=== PATIENT | male | born 1995 | race Caucasian/White ===

== ENCOUNTER 2017-08-22 19:25 | Emergency (ER) | payer MEDICAID, OTHER ==
[2017-08-22 19:32] VITALS: BP 140/97; PULSE 110; RESP 18; TEMP 97.9; O2SAT 95
--- NOTE | 2017-08-22 19:43 | EDPHY ---
H & P Time Seen by Provider: 08/22/17 19:35 HPI/ROS: CHIEF COMPLAINT: Right hand laceration HISTORY OF PRESENT ILLNESS: Shopping fire with a hatchet and lacerated his right hand just proximal to his index finger MCP REVIEW OF SYSTEMS: Denies foreign body sensation or weakness or numbness in the finger with flexion or extension PAST MEDICAL HISTORY: Negative thinks his tetanus is up-to-date Social history: Mother is here General Appearance: Alert and conversant, cooperative. 1 cm longitudinally oriented laceration just proximal to the right index finger MCP. Normal flexion and extension, normal FDP and FDS. Normal capillary refill and normal distal 2 point discrimination. Emergency Department course/MDM: Right hand x-ray ordered because of mechanism. Procedure: Laceration repair. Verbal consent was obtained from the patient. The 1 cm laceration on the right hand was anesthetized using 0.5% bupivacaine with epinephrine. The wound was irrigated with standard emergency department protocol, draped and explored. There were no deep structures involved. No tendon injury was identified, visualized through a full range of motion of the index finger. No foreign body found. The wound was repaired with 5 0 nylon. The wound repair was simple. Excellent hemostasis was obtained. Wound care instructions were discussed and the patient was warned regarding scarring. The procedure was performed by myself. Smoking Status: Never smoked Constitutional: Initial Vital Signs Temperature (C) 36.6 C 08/22/17 19:29 Heart Rate 110 H 08/22/17 19:29 Respiratory Rate 18 08/22/17 19:29 Blood Pressure 140/97 H 08/22/17 19:29 O2 Sat (%) 95 08/22/17 19:29 O2 Delivery Mode Room Air Allergies/Adverse Reactions: No Known Allergies Allergy (Verified 08/22/17 19:29) Home Medications: Medication Instructions Recorded NK [No Known Home Meds] 03/19/15 MDM/Departure - MDM Imaging Results: Imaging Impressions Hand X-Ray 08/22/17 19:39 Impression: No fracture identified. Negative right hand x-ray personally interpreted. Imaging: I viewed and interpreted images myself - Depart Disposition: Home, Routine, Self-Care Clinical Impression: Laceration of right hand Qualifiers: Encounter type: initial encounter Foreign body presence: without foreign body Qualified Code(s): S61.411A - Laceration without foreign body of right hand, initial encounter Condition: Good Instructions: Laceration (ED) Additional Instructions: Call your primary care doctor on Friday to confirm your last tetanus vaccine was within 10 years, if not please return the emergency department on Friday to get updated on your vaccination status. Wound Care Follow-Up: Removal of sutures in 10 days. Suture removal is complimentary in uncomplicated cases. Infection or abnormal findings would require reevaluation by the MD. In that case, you may be billed. Referrals: Arminda Cortez MD [Medical Doctor] - As per Instructions
== END 2017-08-22 20:48 | disposition home or self-care (01) ==
PROC: 0HQFXZZ Repair Right Hand Skin, External Approach (ICD-10-PCS; principal; 2017-08-22)
DX: S61.411A Laceration without foreign body of right hand, initial encounter (principal); W45.8XXA Other foreign body or object entering through skin, initial encounter

== ENCOUNTER 2018-08-10 12:42 | Emergency (ER) | payer MEDICAID, OTHER ==
--- NOTE | 2018-08-10 13:47 | EDPHY ---
General Time Seen by Provider: 08/10/18 13:20 Narrative: CLINICAL IMPRESSION: Right thumb laceration ASSESSMENT/PLAN: Patient is a 22-year-old male with no significant medical history and who is up- to-date on his tetanus status, presents for laceration to his right thumb sustained just prior to arrival. Patient is not toxic appearing, he is in no distress. Physical examination reveals approximately 2.5 cm laceration across the DIP on the palmar aspect right thumb. There is no evidence of deep structure involvement, neurovascular compromise, foreign body, or bony involvement. The wound was not contaminated, The wound was irrigated and then repaired as discussed in the procedure note, the patient tolerated this well. Wound care instructions discussed with patient and mother. He is in the transition of finding a PCP- referral provided, he will return to the ED in 7- 10 days for suture removal. Return precautions discussed- he will return for increased pain, signs of infection, fever, vomiting, if the wound opens or for any other concerns. Patient and mother both verbalize understanding and are in agreement with plan. DIFFERENTIAL DIAGNOSIS: Includes but not limited to laceration of tendon or vascular structure, underlying fracture, laceration with retained FB. ED PROCEDURES: Laceration Repair Verbal consent obtained by patient. Risks discussed, including but not limited to infection, pain, retained foreign body, need for additional repair, poor cosmetic result, tendon damage, nerve damage, poor wound healing, vascular damage. Alternatives to repair discussed. [place] protocol used to establish correct patient, procedure, equipment, emotional support teacher, and site. Anesthesia obtained by local infiltration. Anesthetized with 1% lido w/out epi. Laceration location right thump, palmar aspect, length 2.5 cm, depth 2mm, Repair type simple. Patient was prepped and draped in usual sterile fashion. Hemostasis achieved with direct pressure. Wound explored through full range of motion and entire depth of wound probed and visualized with gloved finger. No suspicion for nerve damage, tendon damage, underlying fracture, vascular damage, foreign body, or contamination. Area was cleansed with Shur-Clens and irrigated with sterile saline as per protocol. No foreign body or material removed. Repair method- sutures 5.0 Prolene. 5 sutures placed. Well aligned, closely approximated. Wound was dressed with abx ointment and sterile dressing, splinted for protection. Patient tolerated well with no immediate complications. Wound care: Clean and dry x 24 hours, gently clean with soap and water, cover with topical antibiotic ointment/bandage. Suture/Staple removal: 7-10 Days CHIEF COMPLAINT: Laceration HPI: Patient is a 22-year-old male with no significant medical history who presents to the emergency department after sustaining a laceration to his right thumb which occurred prior to arrival. Patient reports he was digging through the trash where there was some broken glass, he accidentally cut his hand on the glass. He denies any concern for foreign body. He was able to get the bleeding under control. Patient is right handed, he is up-to-date on his tetanus status. He denies any numbness or tingling of the digit, he has no other concern or complaint. PAST MEDICAL HISTORY: Denies Pertinent Past Surgical History: Denies Social History: Denies REVIEW OF SYSTEMS: All other systems negative Constitutional: No fever, no chills. Musculoskeletal: No deformity, no joint pain. Skin: Laceration right thumb. No rash. Neurological: No sensory loss or weakness. PHYSICAL EXAM: General Appearance: Alert, oriented, appropriate for age, cooperative, NAD, well hydrated, non-toxic appearing, VSS, no hypoxia. Neurological: Alert and oriented x 3. Skin: Laceration right thumb, no rash. Musculoskeletal: Right thumb reveals approximately 2.5 cm laceration across the DIP on the palmar aspect. The interphalangeal joint was tested independently with full strength. Two point discrimination is intact distally. Hand otherwise unremarkable with full ROM, nontender. MEDICAL DECISION MAKING: Patient was seen independently. Secondary supervising physician at time of evaluation was Dr. Garrido, he did not evaluate this patient. Diagnosis: Right thumb laceration. Summary: See assessment and plan for summary of ED visit. Clinical lab tests: N/A. Independent visualization of images, tracing, or specimens: N/A. Decision to obtain medical records or history from someone other than the patient: No. Review / Summarize previous medical records: No. Discussed patient with another provider: Yes, Dr. Garrido. - History Smoking Status: Never smoked - Objective Vital Signs: Initial Vital Signs Temperature (C) 36.6 C 08/10/18 12:50 Heart Rate 89 08/10/18 12:50 Respiratory Rate 16 08/10/18 12:50 Blood Pressure 123/75 H 08/10/18 12:50 O2 Sat (%) 96 08/10/18 12:50 O2 Delivery Mode Room Air Allergies/Adverse Reactions: No Known Allergies Allergy (Verified 08/10/18 12:50) Home Medications: Medication Instructions Recorded NK [No Known Home Meds] 03/19/15 Departure - Departure Disposition: Home, Routine, Self-Care Clinical Impression: Laceration of thumb Condition: Good Instructions: Laceration (ED) Additional Instructions: DISCHARGE INSTRUCTIONS FROM YOUR DOCTOR Thank you for visiting our emergency department today. Please keep in mind that discharge from the emergency department does not mean that there is nothing wrong - it simply means that we have not identified an emergency condition that requires further evaluation or treatment in the hospital. You should always plan to follow up with primary care for re-evaluation of your condition in the next 2-3 days. Keep wound clean and dry for 24 hours. Then remove dressing, clean at least twice daily or when soiled with soap and water, apply antibiotic ointment and dressing. Do not soak the wound while the stitches are in place. Elevate hand as much as possible for the next 24 hours to decrease the swelling and pain. Wear the splint to immobilize the finger for the next 2-5 days to facilitate rapid healing. Anticipate suture removal in 7-10 days. Tylenol every 4-6 hours as directed as needed for pain. Do not exceed 4000 mg in 24 hours. Ibuprofen as directed every 6-8 hours with food as needed for pain. Stop for stomach upset. Do not exceed 2400 mg in 24 hours. Continue your regular medications as prescribed. Schedule a follow-up visit with your primary care physician for suture removal in 7-10 days and sooner for wound check for any concerns. As discussed the laceration was not deep enough to visualize the tendon today. It is unlikely a tendon injury is present and your tendon function is currently intact. However, if at any time, you feel a pop and have difficulty bending or straightening the finger, you should seek re-evaluation from a hand specialist urgently. Return for signs of wound infection ie: redness, swelling, drainage, foul odor, red streaks, fever, chills, pain, bleeding, if the stitches pop, if the wound opens, for numbness, tingling, weakness, discoloration of the finger, coolness of the finger, inability to move or bend the finger or for any other new, worsening or worrisome symptoms. People present with illnesses and injuries in different ways, and it is always possible that we have missed something. You may always return for re-evaluation if symptoms worsen or if they are not improving or if you develop new/different symptoms. Again, thank you for choosing our emergency department. We hope that you feel better. Referrals: NONE *PRIMARY CARE P,. [Primary Care Provider] - As per Instructions Shannon Lemus MD [Medical Doctor] - As per Instructions (Please establish care with a primary care provider.)
[2018-08-10 14:56] VITALS: BP 137/80
== END 2018-08-10 14:54 | disposition home or self-care (01) ==
PROC: 0HQFXZZ Repair Right Hand Skin, External Approach (ICD-10-PCS; principal; 2018-08-10)
DX: S61.011A Laceration without foreign body of right thumb without damage to nail, initial encounter (principal); W25.XXXA Contact with sharp glass, initial encounter; Y93.89 Activity, other specified; Y92.9 Unspecified place or not applicable; Y99.9 Unspecified external cause status